=== PATIENT | female | born 1955 | race Caucasian/White ===

== ENCOUNTER 2019-08-31 13:10 | Inpatient (IN) | payer OTHER ==
[~2019-08-31] VITALS: Ht 157.5 cm; Wt 56.4 kg
[2019-08-31] MEDS ORDERED: HYDROmorphone 2 MG/ML, 1ML IVPush PRN (14:30)
[2019-08-31] MEDS ORDERED: ONDANSETRON 2MG/ML, 2ML IVPush ONE (14:30)
[2019-08-31] MEDS ORDERED: SODIUM CHLORIDE FLUSH 10ML SYR IVF ONE (14:30)
[2019-08-31] MEDS ORDERED: SODIUM CHLORIDE 0.9% 1,000ML IVBOLUS ONE (14:30)
[2019-08-31] MEDS ORDERED: ONDANSETRON 2MG/ML, 2ML ONE (14:35)
[2019-08-31] MEDS ORDERED: HYDROmorphone 1 MG/ML, 1ML INJ ONE (14:35)
[2019-08-31 14:58] LABS: MEAN CORPUSCULAR HEMOGLOBIN 32.2 pg (27.0-34.8); MEAN CORPUSCULAR HGB CONC 33.3 g/dL (32.4-35.8); MEAN CORPUSCULAR VOLUME 96.7 fL (80-100); PLATELET COUNT 324 x10^3/uL (130-400); RED BLOOD COUNT 4.08 x10^6/uL (3.82-5.3); RED CELL DISTRIBUTION WIDTH 13.5 % (9.6-15.2)
[2019-08-31 15:13] LABS: ALBUMIN 3.4 g/dL (3.4-5.0); ANION GAP 12 mmol/L (5-15); CALCIUM 8.8 mg/dL (8.5-10.1); CHLORIDE 103 mmol/L (98-107)
[2019-08-31 15:17] LABS: ALANINE AMINOTRANSFERASE 39 U/L (12-78); ALKALINE PHOSPHATASE 76 U/L (45-117); BILIRUBIN,TOTAL 0.6 mg/dL (0.2-1.0); CREATININE 6.19 mg/dL (0.55-1.02); TOTAL PROTEIN 7.5 g/dL (6.4-8.2)
[2019-08-31 15:19] LABS: BASOPHILS # (AUTO) 0.06 x10^3/uL (0-0.1); BASOPHILS % (AUTO) 0 % (0-1); EOSINOPHILS # (AUTO) 0.32 x10^3/uL (0-0.4); EOSINOPHILS % (AUTO) 2 % (1-7); LYMPHOCYTES # (AUTO) 0.57 x10^3/uL (1-3.4); LYMPHOCYTES % (AUTO) 4 % (22-44); MD SCAN; MONOCYTES # (AUTO) 0.73 x10^3/uL (0.2-0.8); MONOCYTES % (AUTO) 5 % (2-9); NEUTROPHILS # (AUTO) 12.89 x10^3/uL (1.8-6.8); NEUTROPHILS % (AUTO) 89 % (42-75)
[2019-08-31] MEDS ORDERED: LORazepam 2 MG/ML, 1ML IVPush ONE (15:21)
[2019-08-31] MEDS ORDERED: MORPHINE SULFATE 4 MG/ML, 1ML IVPush PRN (15:30)
[2019-08-31] MEDS ORDERED: MORPHINE SULFATE 4 MG/ML, 1ML ONE (15:33)
[2019-08-31] MEDS ORDERED: LORazepam 2 MG/ML, 1ML ONE (15:33)
[2019-08-31] MEDS ORDERED: SODIUM CHLORIDE 0.9% 1,000 ML IV SCH (16:00)
[2019-08-31] MEDS ORDERED: hydrALAzine 20 MG/ML, 1ML IVPush PRN (16:00)
[2019-08-31] MEDS ORDERED: morphine SULFATE 10 MG/ML, 1ML IVPush PRN (16:00)
[2019-08-31] MEDS ORDERED: LABETALOL 5MG/ML, 20ML IVPush PRN (16:00)
[2019-08-31] MEDS ORDERED: OXYcodone IR 5MG TABLET PO PRN (16:00)
[2019-08-31] MEDS ORDERED: CEFTRIAXONE PMX 1GM/50ML 50 ML ONE (16:26)
[2019-08-31] MEDS: CEFTRIAXONE PMX 1GM/50ML 50 ML IV SCH (16:30)
[2019-08-31] MEDS ORDERED: CEPH-376 PO (16:36)
[2019-08-31] MEDS ORDERED: NAPR250T6 PO (16:36)
[2019-08-31 17:19] LABS: INTERNATIONAL NORMALIZED RATIO 0.97 (0.93-1.1); PROTHROMBIN TIME 10.3 Seconds (9.6-11.5)
[2019-08-31 17:30] VITALS: BP 105/69
[2019-08-31 19:03] VITALS: BP 113/72
[2019-08-31 19:46] LABS: ANION GAP 18 mmol/L (5-15); CALCIUM 7.9 mg/dL (8.5-10.1); CHLORIDE 110 mmol/L (98-107); CREATININE 5.89 mg/dL (0.55-1.02)
[2019-08-31] MEDS: HEPARIN 5,000 UNITS/ML, 1ML SQ SCH ×2 (20:00→23:29)
[2019-08-31] MEDS: LACTATED RINGERS 1,000 ML IV SCH (21:00)
[2019-08-31 22:08] LABS: MICROSCOPIC INDICATED
[2019-08-31 22:22] LABS: CULTURE INDICATED? NO
[2019-09-01 00:19] VITALS: BP 137/72
[2019-09-01] MEDS: LACTATED RINGERS 1,000 ML IV SCH (02:48)
[2019-09-01 05:25] LABS: BASOPHILS # (AUTO) 0.03 x10^3/uL (0-0.1); BASOPHILS % (AUTO) 0 % (0-1); EOSINOPHILS # (AUTO) 0.43 x10^3/uL (0-0.4); EOSINOPHILS % (AUTO) 5 % (1-7); LYMPHOCYTES # (AUTO) 0.63 x10^3/uL (1-3.4); LYMPHOCYTES % (AUTO) 7 % (22-44); MD NO; MEAN CORPUSCULAR HEMOGLOBIN 32.2 pg (27.0-34.8); MEAN CORPUSCULAR HGB CONC 33.3 g/dL (32.4-35.8); MEAN CORPUSCULAR VOLUME 96.7 fL (80-100); MEAN PLATELET VOLUME 6.8 fL (7.4-10.4); MONOCYTES # (AUTO) 0.71 x10^3/uL (0.2-0.8); MONOCYTES % (AUTO) 8 % (2-9); NEUTROPHILS # (AUTO) 7.19 x10^3/uL (1.8-6.8); NEUTROPHILS % (AUTO) 80 % (42-75); PLATELET COUNT 268 x10^3/uL (130-400); RED BLOOD COUNT 3.26 x10^6/uL (3.82-5.3); RED CELL DISTRIBUTION WIDTH 13.6 % (9.6-15.2)
[2019-09-01 05:27] LABS: CALCIUM 7.5 mg/dL (8.5-10.1); CHLORIDE 119 mmol/L (98-107)
[2019-09-01 05:32] LABS: ALANINE AMINOTRANSFERASE 34 U/L (12-78); ALBUMIN 2.2 g/dL (3.4-5.0); ALKALINE PHOSPHATASE 56 U/L (45-117); ANION GAP 11 mmol/L (5-15); BILIRUBIN,TOTAL 0.3 mg/dL (0.2-1.0); CREATININE 1.53 mg/dL (0.55-1.02); TOTAL PROTEIN 5.2 g/dL (6.4-8.2)
[2019-09-01 06:48] VITALS: BP 117/72
[2019-09-01] MEDS ORDERED: GLUCAGON 1 MG IM PRN (09:30)
[2019-09-01] MEDS: SODIUM CHLORIDE FLUSH 10ML SYR IVF SCH ×2 (09:30→20:43)
[2019-09-01] MEDS ORDERED: DEXTROSE 50%, 50ML SYRINGE IVPush PRN (09:30)
[2019-09-01] MEDS ORDERED: DEXTROSE 4 GM TAB.CHEW PO PRN (09:30)
[2019-09-01] MEDS: TAMSULOSIN 0.4 MG CAP.ER.24H PO SCH (09:48)
[2019-09-01] MEDS: SODIUM BICARBONATE 8.4% 75 MEQ in SODIUM CHLORIDE 0.45% 1,000 ML IV SCH (11:38)
[2019-09-01] MEDS: HEPARIN 5,000 UNITS/ML, 1ML SQ SCH ×2 (11:39→20:00)
[2019-09-01 12:39] VITALS: BP 121/75
[2019-09-01] MEDS ORDERED: LACTATED RINGERS 1,000 ML IV SCH (16:00)
[2019-09-01] MEDS: CEFTRIAXONE PMX 1GM/50ML 50 ML IV SCH (16:55)
[2019-09-01] MEDS ORDERED: ACETAMINOPHEN 325 MG TABLET PO PRN (17:30)
[2019-09-01] MEDS ORDERED: MELATONIN 3 MG TABLET PO SCH (21:00)
[2019-09-01 21:06] VITALS: BP 122/77
[2019-09-01 22:07] LABS: CHLORIDE,URINE RANDOM 13 mmol/L; POTASSIUM,URINE RANDOM 4 mmol/L; SODIUM,URINE RANDOM 31 mmol/L
[2019-09-02] MEDS: SODIUM BICARBONATE 8.4% 75 MEQ in SODIUM CHLORIDE 0.45% 1,000 ML IV SCH (00:52)
[2019-09-02] MEDS: ONDANSETRON 2MG/ML, 2ML IVPush PRN ×3 (02:52→14:39)
[2019-09-02 03:38] VITALS: BP 123/75
[2019-09-02] MEDS: HEPARIN 5,000 UNITS/ML, 1ML SQ SCH ×2 (04:00→13:35)
[2019-09-02 05:56] LABS: ALBUMIN 2.2 g/dL (3.4-5.0); ANION GAP 8 mmol/L (5-15); CHLORIDE 109 mmol/L (98-107)
[2019-09-02 05:58] LABS: ALANINE AMINOTRANSFERASE 38 U/L (12-78); ALKALINE PHOSPHATASE 51 U/L (45-117); BILIRUBIN,TOTAL 0.4 mg/dL (0.2-1.0); TOTAL PROTEIN 5.3 g/dL (6.4-8.2)
[2019-09-02 06:39] VITALS: BP 118/71
[2019-09-02] MEDS ORDERED: POTASSIUM CHLORIDE 20 MEQ TAB.ER.PRT PO ONE (08:00)
[2019-09-02] MEDS ORDERED: POTASSIUM CHLORIDE 20 MEQ TAB.ER.PRT PO SCH (08:00)
[2019-09-02] MEDS ORDERED: CEFDINIR 300 MG CAPSULE PO SCH (08:00)
[2019-09-02] MEDS: SODIUM CHLORIDE FLUSH 10ML SYR IVF SCH (09:00)
[2019-09-02] MEDS: TAMSULOSIN 0.4 MG CAP.ER.24H PO SCH (09:02)
[2019-09-02] MEDS ORDERED: CEFD300C37 PO (10:05)
[2019-09-02] MEDS ORDERED: ACET325T26 PO (10:05)
[2019-09-02] MEDS ORDERED: TAMS-11 PO (10:05)
[2019-09-02] MEDS ORDERED: POTA20TA6 PO (10:05)
[2019-09-02 12:21] VITALS: BP 111/72
== END 2019-09-02 15:49 | disposition home or self-care (01) | DRG 683 ==
LOC: ED 15:04 → EDIP 15:34 → 4WST 16:47 → 4EST 21:36 → DCLOUNGE 09-02 15:19
PROVIDERS: ADMIT Internal Medicine; ATTEND Internal Medicine
DX: N17.9 Acute kidney failure, unspecified (principal); E87.0 Hyperosmolality and hypernatremia; E87.1 Hypo-osmolality and hyponatremia; E87.2 Acidosis; D64.9 Anemia, unspecified; D72.829 Elevated white blood cell count, unspecified; N13.30 Unspecified hydronephrosis; K59.00 Constipation, unspecified; Z88.5 Allergy status to narcotic agent
CPT/HCPCS: 36415; 71045; 74176; 76770; 80048; 80053; 81001; 82436; 82550; 82565; 82570; 83605; 83690; 83735; 83970; 84100; 84133; 84300; 84550; 85025; 85610; 85730; 87040; 96374; 96375; G0378; J0696; J1170; J1644; J2405; J2060; J2270; J7030; J7120